=== PATIENT | male | born 1995 | race Caucasian/White ===

== ENCOUNTER 2020-03-21 14:48 | Emergency (ER) | payer OTHER ==
[~2020-03-21] VITALS: Ht 172.7 cm; Wt 75.0 kg
[2020-03-21 14:50] VITALS: BP 132/63
--- NOTE | 2020-03-21 15:51 | NUR ---
PT LEFT WITHOUT DC PAPERWORK OR GETTING DC VITALS
== END 2020-03-21 15:53 | disposition home or self-care (01) ==
LOC: ED 15:31
DX: J20.8 Acute bronchitis due to other specified organisms (principal); Z20.828 Contact with and (suspected) exposure to other viral communicable diseases; J06.9 Acute upper respiratory infection, unspecified
CPT/HCPCS: 87635; 99283